=== PATIENT | female | born 1955 | race Caucasian/White ===

== ENCOUNTER 2017-09-20 12:00 | Emergency (ER) | payer OTHER ==
[2017-09-20 12:07] VITALS: TEMP 98.6
--- NOTE | 2017-09-20 12:27 | CPEKG ---
Heart Rate: 77 RR Interval: 779 P-R Interval: 152 QRSD Interval: 80 QT Interval: 360 QTC Interval: 408 P [place]: 75 QRS [place]: 57 T Wave [place]: 77 EKG Severity - NORMAL ECG - EKG Impression: SINUS RHYTHM Electronically Signed By: Francis Oviedo 20-Sep-2017 18:51:39
--- NOTE | 2017-09-20 12:36 | EDPHY ---
H & P Stated Complaint: L shoulder pressure radiating up neck/jaw since last night Time Seen by Provider: 09/20/17 12:35 - Personal History Current Tetanus/Diphtheria Vaccine: Unsure Current Tetanus Diphtheria and Acellular Pertussis (TDAP): Unsure - Medical/Surgical History Hx Asthma: No Hx Chronic Respiratory Disease: No Hx Diabetes: No Hx Cardiac Disease: Yes Hx Renal Disease: No Hx Cirrhosis: No Hx Alcoholism: No Hx HIV/AIDS: No Hx Splenectomy or Spleen Trauma: No Other PMH: aortic valve failure. htn - Social History Smoking Status: Never smoked Constitutional: Initial Vital Signs Temperature (C) 37.0 C 09/20/17 12:04 Heart Rate 82 09/20/17 12:04 Respiratory Rate 16 09/20/17 12:04 Blood Pressure 125/75 H 09/20/17 12:04 O2 Sat (%) 97 09/20/17 12:04 O2 Delivery Mode Room Air Allergies/Adverse Reactions: gluten [Gluten] Allergy (Intermediate, Verified 10/27/10 01:29) Unknown Sulfa (Sulfonamide Antibiotics) Allergy (Intermediate, Verified 10/27/10 01:29) Rash nsaids Allergy (Mild, Uncoded 10/20/11 16:26) Home Medications: Medication Instructions Recorded Unobtainable 09/20/17 Medical Decision Making - Diagnostics Imaging Results: Imaging Impressions Chest/Thorax CTA 09/20/17 12:52 Impression: 1. Mild dilatation of the ascending aorta measuring 3.8 cm that is increased slightly since prior CT study. No significant aneurysm or dissection. 2. Mild thickening of the tricuspid aortic valve with focal calcification in this patient with history of aortic valvular insufficiency. Imaging: Discussed imaging studies w/ aerosol supervisor Radiologist, I viewed and interpreted images myself ED Course/Re-evaluation: CHIEF COMPLAINT: Chest pain HISTORY OF PRESENT ILLNESS: The patient is a 62 y/o female with history of aortic insufficiency arriving at the referral of her scientific publications editor after she developed chest pain last night. She says her "aortic valve is at the end of it' s life" and she was scheduled for a CTA chest today for further evaluation of this. On Saturday, 3 days ago, she developed nausea, vomiting, chills, and myalgias. She stayed in bed for the last few days recuperating and her symptoms resolved completely. Last night she developed chest pain that radiated to her left shoulder and jaw. It seemed to dissipate when walking around. This morning she again had intermittent chest pressure radiating into her shoulder and jaw and also to the back of her head. She denies associated dyspnea, diaphoresis, or near-syncope. She had some nausea, but thinks this is related to her recent GI illness. She called her scientific publications editor this morning and was referred to the ED for evaluation. She denies any chest pain or pressure currently. REVIEW OF SYSTEMS: A 10 point review of systems was performed and is negative with the exception of the elements mentioned in the history of present illness. PHYSICAL EXAM: HR, BP, O2 Sat, RR. Temp noted General Appearance: Alert, well hydrated, appropriate, and non-toxic appearing. Head: Atraumatic without scalp tenderness or obvious injury Eyes: Pupils equal, round, reactive to light and accommodation, EOMI, no trauma , no injection. Nose: Atraumatic, no rhinorrhea, clear. Throat: Mucus membranes moist. Neck: Supple Respiratory: No retractions, no distress, no wheezes, and no accessory muscle use. Lungs are clear to auscultation bilaterally. Cardiovascular: Regular rate and rhythm, aortic murmur, rubs, or gallops. Good capillary refill all extremities. Gastrointestinal: Abdomen is soft, nontender, non-distended, no masses, no rebound, no guarding, no peritoneal signs. Musculoskeletal: Normal active ROM of all extremities, atraumatic. Neurological: Alert, appropriate, and interactive. The patient has non-focal cranial nerves, motor, sensory, and cerebellar exam. Skin: No rashes, good turgor, no nodules on palpation. Past medical history: Aortic insufficiency, hypertension Past surgical history: Denies Family history: Noncontributory Social history: Family member at bedside. Crusher Tender: Dr. Wilkerson DIAGNOSTICS/PROCEDURES/CRITICAL CARE TIME: The 12 lead EKG was interpreted by myself. Sinus mechanism. See hard copy and/ or "tracemaster" electronic copy for interpretation. Chest CTA: mildly dilated aorta, no aneurysm or dissection. DIFFERENTIAL DIAGNOSIS: The differential diagnosis for the patient's chest pain included but was not limited to myocardial ischemia, pulmonary embolus, chest wall pain, pleural inflammation, and pulmonary infectious causes. MEDICAL DECISION MAKING: This is a well-appearing 62 y/o female with severe aortic insufficiency who presents for evaluation of intermittent chest pressure radiating to her left shoulder, jaw, and head following GI illness. She is asymptomatic at this time. Aortic murmur noted on exam. Plan for IV, labs, EKG, and chest CTA as originally planned. CTA shows mildly dilated aorta, no dissection or aneurysm. Discussed work up with patient during reassessment. Exam is unchanged. Labs unremarkable. She will be discharged home with instructions to follow up with her scientific publications editor as planned. Return precautions discussed. She is comfortable with this plan. - Data Points Laboratory Results: Laboratory Results 09/20/17 12:30 09/20/17 12:30 09/20/17 09/20/17 09/20/17 12:30 12:30 12:30 WBC 4.75 10^3/uL 10^3/uL (3.80-9.50) RBC 4.59 10^6/uL 10^6/uL (4.18-5.33) Hgb 14.9 g/dL g/dL (12.6-16.3) Hct 41.3 % % (38.0-47.0) MCV 90.0 fL fL (81.5-99.8) MCH 32.5 pg pg (27.9-34.1) MCHC 36.1 g/dL g/dL (32.4-36.7) RDW 11.8 % % (11.5-15.2) Plt Count 272 10^3/uL 10^3/uL (150-400) MPV 9.1 fL fL (8.7-11.7) Neut % (Auto) 59.0 % % (39.3-74.2) Lymph % (Auto) 30.7 % % (15.0-45.0) Fisher % (Auto) 8.2 % % (4.5-13.0) Eos % (Auto) 1.3 % % (0.6-7.6) Baso % (Auto) 0.6 % % (0.3-1.7) Nucleat RBC Rel Count 0.0 % % (0.0-0.2) Absolute Neuts (auto) 2.80 10^3/uL 10^3/uL (1.70-6.50) Absolute Lymphs (auto) 1.46 10^3/uL 10^3/uL (1.00-3.00) Absolute Monos (auto) 0.39 10^3/uL 10^3/uL (0.30-0.80) Absolute Eos (auto) 0.06 10^3/uL 10^3/uL (0.03-0.40) Absolute Basos (auto) 0.03 10^3/uL 10^3/uL (0.02-0.10) Absolute Nucleated RBC 0.00 10^3/uL 10^3/uL (0-0.01) Immature Gran % 0.2 % % (0.0-1.1) Immature Gran # 0.01 10^3/uL 10^3/uL (0.00-0.10) D-Dimer 0.30 ug/mLFEU ug/mLFEU (0.00-0.50) Sodium 138 mEq/L mEq/L (135-145) Potassium 3.2 mEq/L L mEq/L (3.5-5.2) Chloride 95 mEq/L L mEq/L (97-110) Carbon Dioxide 28 mEq/l mEq/l (22-31) Anion Gap 15 mEq/L mEq/L (8-16) BUN 11 mg/dL mg/dL (7-23) Creatinine 0.7 mg/dL mg/dL (0.6-1.0) Estimated GFR > 60 Glucose 101 mg/dL H mg/dL (70-100) Calcium 9.5 mg/dL mg/dL (8.5-10.4) Troponin I < 0.012 ng/mL ng/mL (0.000-0.034) NT-Pro-B Natriuret Pep 126 pg/mL H pg/mL (0-125) Departure - Departure Disposition: Home, Routine, Self-Care Clinical Impression: Atypical chest pain Condition: Good Instructions: Chest Pain (ED) Additional Instructions: Follow up with your primary care provider and scientific publications editor as planned. Return to the ED for worsening of condition. Referrals: Cathryn Schultz MD [Primary Care Provider] - As per Instructions Yovany Wilkerson MD [Medical Doctor] - As per Instructions Report Scribed for: Krzysztof Peng Report Scribed by: Olga Kimbrough Date of Report: 09/20/17 Time of Report: 12:54
[2017-09-20 12:41] LABS: PLATELET COUNT 272 10^3/uL (150-400)
[2017-09-20] MEDS ORDERED: IOPAMIDOL (ISOVUE 370) 100 ML BTL IV ONE (13:02)
[2017-09-20 14:39] VITALS: BP 126/80; PULSE 86; RESP 16; O2SAT 97
== END 2017-09-20 14:37 | disposition home or self-care (01) ==
DX: R07.89 Other chest pain (principal); I10 Essential (primary) hypertension
CPT/HCPCS: Q9967